=== PATIENT | female | born 1980 | race African-American/Black ===

== ENCOUNTER 2024-02-14 13:47 | Inpatient (IN) | payer OTHER ==
[2024-02-14 14:28] VITALS: BMI 28.3
[2024-02-14] MEDS ORDERED: NALOXONE (NARCAN) HCL 4 MG/0.1 ML SPRAY NS PRN (15:35)
[2024-02-14] MEDS ORDERED: IBUPROFEN 400 MG TABLET (FP) PO PRN (15:35)
[2024-02-14] MEDS ORDERED: guaiFENesin 600 MG TABLET.ER (FP) PO PRN (15:35)
[2024-02-14] MEDS ORDERED: NALOXONE HCL 0.4 MG/ML VIAL IM PRN (15:35)
[2024-02-14] MEDS ORDERED: BENZONATATE 200 MG CAPSULE PO PRN (15:35)
[2024-02-14] MEDS ORDERED: LORazepam 1 MG TABLET PO PRN (15:35)
[2024-02-14] MEDS ORDERED: BISMUTH SUBSALICYLATE 524 MG/30 ML PO PRN (15:35)
[2024-02-14] MEDS ORDERED: LOPERAMIDE HCL 2 MG CAPSULE PO PRN (15:35)
[2024-02-14] MEDS ORDERED: ONDANSETRON *ODT* 4 MG TABLET SL PRN (15:35)
[2024-02-14] MEDS ORDERED: MAGNESIUM HYDROX 2400MG/30ML ORAL SUSPENSION 30 ML CUP PO PRN (15:35)
[2024-02-14] MEDS ORDERED: MAG HYDROX/AL HYDROX/SIMETH 30 ML UNIT-DOSE CUP PO PRN (15:35)
[2024-02-14] MEDS ORDERED: POLYETHYLENE GLYCOL (HEALTHYLAX) 3350 17 GM PACKET PO PRN (15:35)
[2024-02-14] MEDS ORDERED: BENZOCAINE/MENTHOL (CHLORASEPTIC ) LOZENGE MM PRN (15:35)
[2024-02-14] MEDS ORDERED: ACETAMINOPHEN 325 MG TABLET (FP) PO PRN (15:35)
[2024-02-14] MEDS: PRENATAL VITAMINS W/ FOLIC ACID TABLET (FP) PO SCH (17:47)
[2024-02-14] MEDS: LORazepam 2 MG TABLET PO SCH (17:47)
[2024-02-14] MEDS: PANTOPRAZOLE 40 MG TABLET PO SCH (17:47)
[2024-02-14] MEDS: THIAMINE 100 MG TABLET PO SCH ×2 (18:22→22:40)
[2024-02-14] MEDS: DICYCLOMINE HCL 10 MG CAPSULE PO PRN (21:24)
[2024-02-14] MEDS: hydrOXYzine PAMOATE 25 MG CAPSULE (FP) PO PRN (21:26)
[2024-02-14] MEDS: MELATONIN 5 MG TABLETS PO SCH (22:39)
[2024-02-15] MEDS: PANTOPRAZOLE 40 MG TABLET PO SCH (10:05)
[2024-02-15 11:35] LABS: HEMATOCRIT 28.9 % (32.4-45.2); HEMOGLOBIN 9.2 GM/dL (10.7-15.3); MCH 29.4 pg (25.7-33.7); MEAN CELL VOLUME 91.7 fl (80-96); MEAN PLT VOLUME 7.9 fl (7.5-11.1); PLATELET COUNT 152 10^3/uL (134-434); RBC 3.15 M/mm3 (3.60-5.2); RDW 28.1 % (11.6-15.6); WHITE BLOOD COUNT 4.1 K/mm3 (4.0-10.0)
[2024-02-15 11:51] LABS: CHLORIDE 105 mmol/L (98-107); POTASSIUM 3.1 mmol/L (3.5-5.1); SODIUM 140 mmol/L (136-145)
[2024-02-15 12:11] LABS: GLUCOSE,RANDOM 87 mg/dL (74-106)
[2024-02-15 12:12] LABS: ALBUMIN 3.3 g/dl (3.4-5.0); ANION GAP 10 mmol/L (4-13); CALCIUM 8.9 mg/dL (8.5-10.1); CO2 25 mmol/L (21-32)
[2024-02-15 12:14] LABS: CREATININE 0.8 mg/dL (0.55-1.3); SGOT/AST 64 U/L (15-37); SGPT/ALT 28 U/L (13-61)
[2024-02-15 12:16] LABS: BILIRUBIN,TOTAL 3.1 mg/dL (0.2-1)
[2024-02-15 12:17] LABS: ALK PHOS 131 U/L (45-117)
[2024-02-15] MEDS: LACTULOSE 20 GM/30 ML UDC (FOR ORAL USE ONLY) PO SCH (17:37)
[2024-02-15] MEDS: POTASSIUM CHLORIDE ORAL LIQUID 20 MEQ/15 ML PO SCH (17:37)
[2024-02-15] MEDS: METHOCARBAMOL 500 MG TABLET PO PRN (22:32)
[2024-02-16] MEDS: LORazepam 1 MG TABLET PO SCH (05:31)
[2024-02-16 12:24] LABS: IRON SERUM 37 ug/dL (50-175)
[2024-02-16 12:30] LABS: TOTAL IRON BINDING CAPACITY 429 ug/dL (250-450)
[2024-02-16] MEDS: FERROUS SO4 325 MG TABLET (FP) PO SCH (17:28)
[2024-02-17] MEDS ORDERED: LORazepam 0.5 MG TABLET PO PRN
[2024-02-17] MEDS: LORazepam 0.5 MG TABLET PO SCH (06:08)
[2024-02-18] MEDS: LORazepam 0.5 MG TABLET PO ONE (05:33)
[2024-02-18] MEDS: IBUPROFEN 600 MG TABLET (FP) PO PRN (18:18)
[2024-02-20 10:45] VITALS: RESP 18
[2024-02-20 13:40] VITALS: BP 108/67; PULSE 77; TEMP 97.8
== END 2024-02-20 14:04 | disposition home or self-care (01) | DRG 774 ==
LOC: YASAS 13:47 → Y6N 16:34
PROVIDERS: ADMIT Allergy & Immunology; ATTEND Surgery
PROC: HZ2ZZZZ Detoxification Services for Substance Abuse Treatment (ICD-10-PCS; principal; 2024-02-14)
DX: F10.230 Alcohol dependence with withdrawal, uncomplicated (principal); F14.10 Cocaine abuse, uncomplicated; F41.9 Anxiety disorder, unspecified; D50.9 Iron deficiency anemia, unspecified; E80.6 Other disorders of bilirubin metabolism; E87.6 Hypokalemia; G62.9 Polyneuropathy, unspecified; K21.9 Gastro-esophageal reflux disease without esophagitis; R79.89 Other specified abnormal findings of blood chemistry; Z87.891 Personal history of nicotine dependence; Z87.19 Personal history of other diseases of the digestive system; Z88.5 Allergy status to narcotic agent
CPT/HCPCS: 36415; 80053; 80305; 80307; 81025; 82140; 82247; 82607; 82728; 82747; 83540; 83550; 84132; 85014; 85027; 86780; 86803; 93005; 93010